=== PATIENT | male | born 1955 | race Caucasian/White ===

== ENCOUNTER 2016-09-05 16:15 | Emergency (ER) | payer OTHER ==
[~2016-09-05] VITALS: Ht 167.6 cm; Wt 79.4 kg
--- NOTE | 2016-09-05 16:33 | ED ANIMAL BITE/WOUND CHECK ---
History of Present Illness General Chief Complaint: Animal/Insect Bite Stated Complaint: TICK BITE (BACK OF HEAD) Source: patient Exam Limitations: no limitations Vital Signs & Intake/Output Vital Signs & Intake/Output Vital Signs Date Time Temp Pulse Resp B/P B/P Pulse O2 O2 Flow FiO2 Mean Ox Delivery Rate 09/05 1733 97.8 80 20 144/90 96 Room Air 09/05 1624 98.6 710 16 157/97 96 Room Air Allergies Coded Allergies: No Known Allergies (09/05/16) Reconcile Medications Doxycycline Hyclate 100 MG CAPSULE 1 CAP PO BID TICK BITE/CELLULITIS Metoprolol Succinate 50 MG TAB.ER.24H 1 TAB PO DAILY HTN (Reported) Triage Note: PT STATES HE THINKS HE MAY HAVE GOTTEN BIT BY A TICK BITE TO THE BACK OF HIS HEAD. PT STATES HE SCRATCHED HIS HEAD AND NOTICED A TICK ON HIS FINGER AFTER. PT STATES THIS OCCURED THIS AM. Triage Nurses Notes Reviewed? yes Onset: Abrupt Duration: constant Timing: single episode today Injury Environment: home Severity: mild Severity Numbers: 3 HPI: Patient is a 60-year-old male who presents to emergency room today for concerns of suspecting tick bite or he states that earlier today while outside he scratched the back of his head where he thought that he felt a tick where he found the tick on his hand patient does state that he shaved his head around the area and has been complaining of mild localized swelling since. Denies any fever chills. Patient does state that he did not have any concern yesterday of tick bite. Denies any history of Lyme disease Past History Travel History Traveled to [place] past 21 day No Medical History Any Pertinent Medical History? see below for history Cardiovascular: hypertension, OPEN HEART SURGERY Surgical History Surgical History: non-contributory Psychosocial History What is your primary language [place] Tobacco Use: Never used ETOH Use: denies use Illicit Drug Use: denies illicit drug use Family History Hx Contributory? No Review of Systems Review of Systems Constitutional: Reports: no symptoms. EENTM: Reports: no symptoms. Respiratory: Reports: no symptoms. Cardiovascular: Reports: no symptoms. GI: Reports: no symptoms. Genitourinary: Reports: no symptoms. Musculoskeletal: Reports: no symptoms. Skin: Reports: see HPI, lumps. Neurological/Psychological: Reports: no symptoms. Hematologic/Endocrine: Reports: no symptoms. Immunologic/Allergic: Reports: no symptoms. All Other Systems: Reviewed and Negative Physical Exam Physical Exam General Appearance: no apparent distress, alert, comfortable Head: atraumatic Eyes: Bilateral: normal appearance. Ears, Nose, Throat: normal pharynx Neck: normal inspection Respiratory: normal breath sounds Extremities: normal range of motion Neurologic/Psych: no motor/sensory deficits, awake, oriented x 3 Skin: intact Lymphatic: no anterior cervical kamron Diagram Head: 1) Noted 1 cm erythematous mildly tender fluctuance with no foreign body no active discharge. Progress Differential Diagnosis: abscess, cellulitis, joint infection, tenosysnovitis, TICK BITE, LYME DISEASE Plan of Care: Orders Procedure Date/time Status LYME TITRE 09/06 1719 Active Laboratory Tests 09/05/16 1728: Lyme Disease Antibody Pending Patient will receive Lyme titer evaluation patient tolerated incision and drainage well no culture was obtained. Doxycycline will be prescribed patient. DISCUSSED PLAN WITH DR VAUGHN WHO AGREES. ([facility]AA[facility]) Departure Departure Disposition: HOME OR SELF CARE Condition: Stable Clinical Impression Primary Impression: Abscess of neck Secondary Impressions: Cellulitis, Tick bite Referrals: RITU TAYLOR MD (PCP/Family) Additional Instructions: As discussed begin to apply warm compresses to the area. Begin the prescription doxycycline as directed for the full course. Prescription is waiting a [facility] pharmacy. Return to emergency room in 2 days for wound recheck. Change the dressings of the Tegaderm if they fall off with the extra bandages provided to the emergency room. If symptoms worsen return to emergency room Departure Forms: Customer Survey General Discharge Information Prescriptions: Current Visit Scripts Doxycycline Hyclate 1 CAP PO BID #20 CAP Procedures Incision and Drainage Site: LATERAL NECK Blade Size: 15 I & D Procedure: Yes: betadine prep, sterile drapes applied, sterile dressing applied. No: wick placed. Progress: Using sterile technique and Betadine I used 5 mL of 1% lidocaine for local anesthesia making a 7 mm incision no purulent discharge was produced no culture was obtained gauze and Tegaderm were then applied. Patient tolerated well.
[2016-09-05] MEDS ORDERED: METOPROLOL SUCC50 M2 PO (16:40)
[2016-09-05] MEDS ORDERED: DOXYCYCLINE HY100 M2 PO (17:25)
[2016-09-05 17:33] VITALS: BP 144/90
== END 2016-09-05 17:38 ==
LOC: ERH 16:15
DX: S00.06XA Insect bite (nonvenomous) of scalp, initial encounter (principal); L02.11 Cutaneous abscess of neck; L03.811 Cellulitis of head [any part, except face]; W57.XXXA Bitten or stung by nonvenomous insect and other nonvenomous arthropods, initial encounter
CPT/HCPCS: 86618